=== PATIENT | male | born 1990 | race Caucasian/White ===

== ENCOUNTER 2022-07-29 09:00 | Inpatient (IN) | payer BC ==
[~2022-07-29] VITALS: Ht 177.8 cm; Wt 113.4 kg
[2022-07-29 09:07] VITALS: BP_SYST 166
[2022-07-29] MEDS ORDERED: NACL 0.9% 1,000 ML IV ONE ×2 (09:15→11:15)
[2022-07-29 09:32] LABS: BILIRUBIN,URINE 1+ (NEGATIVE); BLOOD, URINE 2+ (NEGATIVE); CLARITY/URINE CLEAR (CLEAR); COLOR,URINE YELLOW (YELLOW); GLUCOSE,URINE NEGATIVE (NEGATIVE); KETONES,URINE TRACE (NEGATIVE); LEUKOCYTE ESTERASE ,URINE NEGATIVE (NEGATIVE); NITRITE, URINE NEGATIVE (NEGATIVE); PH,URINE 5.5 (5.0-8.0); PROTEIN URINE 2+ (NEGATIVE); UROBILINOGEN,URINE 0.2 (0.2-1.0)
[2022-07-29 09:44] LABS: BACTERIA,URINE None Seen /HPF (None Seen); HYALINE CASTS, URINE 0-10 /LPF (None Seen); MUCUS,URINE 1+ /LPF (None Seen); WBC,URINE 0-3 /HPF (0-3)
[2022-07-29 09:57] LABS: BASOPHILS % (AUTO) 0.3 % (0.0-2.0); EOSINOPHILS % (AUTO) 0.3 % (0.0-4.0); HEMATOCRIT 43.6 % (36-54); HEMOGLOBIN 15.2 g/dL (14.0-18.0); LYMPHOCYTES # (AUTO) 1.7 K/uL (1.0-5.5); LYMPHOCYTES % (AUTO) 13.7 % (20.5-51.5); MEAN CORPUSCULAR HEMOGLOBIN 29 pg (27-31); MEAN CORPUSCULAR HGB CONC 35 % (32-36); MEAN CORPUSCULAR VOLUME 83 fL (79.0-98.0); MONOCYTES # (AUTO) 0.9 K/uL (0.0-1.0); MONOCYTES % (AUTO) 7.5 % (1.7-9.3); NEUTROPHILS # (AUTO) 9.5 K/uL (1.8-7.7); NEUTROPHILS % (AUTO) 78.2 % (40.0-70.0); PLATELET COUNT (AUTO) 250 K/uL (130-430); RED BLOOD CELL COUNT(AUTO) 5.26 MIL/uL (4.2-6.2); RED CELL DISTRIBUTION WIDTH 13.2 % (9.0-15.0); WHITE BLOOD COUNT (AUTO) 12.1 K/uL (4.8-10.8)
[2022-07-29 10:07] LABS: CALCIUM 9.2 mg/dL (8.4-11.0); CREATININE 1.61 mg/dL (0.55-1.30)
[2022-07-29 10:22] LABS: ALBUMIN 4.1 g/dL (3.4-4.8)
[2022-07-29] MEDS ORDERED: MORPHINE 4 MG INJ. 4 MG/ML VIAL IVP ONE (10:45)
[2022-07-29] MEDS ORDERED: ONDANSETRON HCL 4 MG/2 ML VIAL IVP ONE (10:45)
[2022-07-29] MEDS ORDERED: ONDANSETRON HCL 4 MG/2 ML VIAL IVP PRN (11:45)
[2022-07-29 13:00] VITALS: BP_SYST 150
[2022-07-29] MEDS ORDERED: MORPHINE 2 MG/ML INJ. SYRINGE IVP PRN (14:00)
[2022-07-29] MEDS ORDERED: NALOXONE HCL 0.4 MG/ML AMP (NARCAN) IVP PRN ×2 (14:00→17:00)
[2022-07-29] MEDS ORDERED: hydrALAZINE HCL 20 MG/ML VIAL IVP PRN (14:00)
[2022-07-29] MEDS ORDERED: D5/0.45 NS 1,000 ML IV SCH (14:15)
[2022-07-29] MEDS: MORPHINE 4 MG INJ. 4 MG/ML VIAL IVP PRN ×2 (14:30→21:50)
[2022-07-29] MEDS: D5/0.45 NS 1,000 ML IV SCH ×2 (14:35→22:15)
[2022-07-29] MEDS ORDERED: LORazepam 2 MG/ML VIAL IM PRN (17:00)
[2022-07-29] MEDS ORDERED: HYDROmorphone 1 MG/ML INJ. CARTRIDGE IM PRN (17:00)
[2022-07-29] MEDS: cefTRIAXone 1 GM in D5W 50 ML IV SCH (17:15)
[2022-07-29 20:00] VITALS: BP_SYST 124
[2022-07-29 20:15] VITALS: BP_SYST 146
[2022-07-30] VITALS (8 sets, daily range): BP systolic 118–161
[2022-07-30] MEDS: MORPHINE 4 MG INJ. 4 MG/ML VIAL IVP PRN ×4 (04:58→23:02)
[2022-07-30 06:46] LABS: BASOPHILS % (AUTO) 0.1 % (0.0-2.0); EOSINOPHILS % (AUTO) 0.1 % (0.0-4.0); HEMATOCRIT 47.2 % (36-54); HEMOGLOBIN 16.2 g/dL (14.0-18.0); LYMPHOCYTES # (AUTO) 0.9 K/uL (1.0-5.5); MEAN CORPUSCULAR HEMOGLOBIN 29 pg (27-31); MEAN CORPUSCULAR HGB CONC 34 % (32-36); MEAN CORPUSCULAR VOLUME 85 fL (79.0-98.0); MONOCYTES # (AUTO) 0.9 K/uL (0.0-1.0); MONOCYTES % (AUTO) 7.4 % (1.7-9.3); NEUTROPHILS # (AUTO) 10.8 K/uL (1.8-7.7); NEUTROPHILS % (AUTO) 85.4 % (40.0-70.0); PLATELET COUNT (AUTO) 237 K/uL (130-430); RED BLOOD CELL COUNT(AUTO) 5.58 MIL/uL (4.2-6.2); RED CELL DISTRIBUTION WIDTH 13.3 % (9.0-15.0); WHITE BLOOD COUNT (AUTO) 12.7 K/uL (4.8-10.8)
[2022-07-30 08:32] LABS: ALBUMIN 3.5 g/dL (3.4-4.8); CREATININE 1.22 mg/dL (0.55-1.30); PHOSPHORUS 3.5 mg/dL (2.7-4.5); TOTAL BILIRUBIN 0.7 mg/dL (0.0-1.0)
[2022-07-30] MEDS: D5/0.45 NS 1,000 ML IV SCH (08:44)
[2022-07-30] MEDS: LR 1,000 ML IV SCH ×3 (11:11→17:18)
[2022-07-30] MEDS: cefTRIAXone 1 GM in D5W 50 ML IV SCH (17:50)
[2022-07-31] MEDS: LR 1,000 ML IV SCH ×5 (00:38→17:34)
[2022-07-31 04:00] VITALS: BP_SYST 153
[2022-07-31] MEDS: MORPHINE 4 MG INJ. 4 MG/ML VIAL IVP PRN ×2 (05:34→10:12)
[2022-07-31 07:03] LABS: CALCIUM 7.9 mg/dL (8.4-11.0); CREATININE 1.01 mg/dL (0.55-1.30)
[2022-07-31 07:39] LABS: BASOPHILS # (AUTO) 0.1 K/uL (0.0-0.2); BASOPHILS % (AUTO) 0.4 % (0.0-2.0); EOSINOPHILS # (AUTO) 0.1 K/uL (0.0-0.4); EOSINOPHILS % (AUTO) 0.8 % (0.0-4.0); HEMATOCRIT 39.5 % (36-54); HEMOGLOBIN 13.9 g/dL (14.0-18.0); LYMPHOCYTES % (AUTO) 7.6 % (20.5-51.5); MEAN CORPUSCULAR HEMOGLOBIN 29 pg (27-31); MEAN CORPUSCULAR HGB CONC 35 % (32-36); MEAN CORPUSCULAR VOLUME 83 fL (79.0-98.0); MONOCYTES % (AUTO) 7.3 % (1.7-9.3); NEUTROPHILS # (AUTO) 11.1 K/uL (1.8-7.7); NEUTROPHILS % (AUTO) 83.9 % (40.0-70.0); PLATELET COUNT (AUTO) 177 K/uL (130-430); RED BLOOD CELL COUNT(AUTO) 4.73 MIL/uL (4.2-6.2); WHITE BLOOD COUNT (AUTO) 13.3 K/uL (4.8-10.8)
[2022-07-31 08:30] VITALS: BP_SYST 153
[2022-07-31] MEDS ORDERED: ACETAMINOPHEN 325 MG TABLET PO PRN (10:45)
[2022-07-31] MEDS ORDERED: HYDROcodone/ACETAMIN 5-325 MG TAB (NORCO/ VICODIN) PO PRN (10:45)
[2022-07-31] MEDS ORDERED: NALOXONE HCL 0.4 MG/ML AMP (NARCAN) IVP PRN (10:45)
[2022-07-31] MEDS ORDERED: HYDROCHLOROTHIAZIDE 25 MG TABLET (HCTZ) PO ONE (11:30)
[2022-07-31 12:00] VITALS: BP_SYST 144
[2022-07-31 16:18] VITALS: BP_SYST 162
[2022-07-31] MEDS: OXYCODONE/ACETAMINOPHEN 5-325 TABLET PO PRN (16:23)
[2022-07-31 20:00] VITALS: BP_SYST 150
[2022-08-01 02:00] VITALS: BP_SYST 152
[2022-08-01] MEDS: OXYCODONE/ACETAMINOPHEN 5-325 TABLET PO PRN ×2 (02:35→08:48)
[2022-08-01] MEDS: LR 1,000 ML IV SCH ×2 (02:35→06:10)
[2022-08-01 06:56] LABS: BASOPHILS % (AUTO) 0.4 % (0.0-2.0); EOSINOPHILS # (AUTO) 0.2 K/uL (0.0-0.4); EOSINOPHILS % (AUTO) 1.7 % (0.0-4.0); HEMATOCRIT 34.4 % (36-54); LYMPHOCYTES # (AUTO) 1.4 K/uL (1.0-5.5); LYMPHOCYTES % (AUTO) 12.1 % (20.5-51.5); MEAN CORPUSCULAR HEMOGLOBIN 29 pg (27-31); MEAN CORPUSCULAR HGB CONC 35 % (32-36); MEAN CORPUSCULAR VOLUME 84 fL (79.0-98.0); MONOCYTES % (AUTO) 8.8 % (1.7-9.3); NEUTROPHILS # (AUTO) 9.1 K/uL (1.8-7.7); PLATELET COUNT (AUTO) 163 K/uL (130-430); RED BLOOD CELL COUNT(AUTO) 4.11 MIL/uL (4.2-6.2); RED CELL DISTRIBUTION WIDTH 13.3 % (9.0-15.0); WHITE BLOOD COUNT (AUTO) 11.8 K/uL (4.8-10.8)
[2022-08-01 07:05] LABS: ALBUMIN 2.4 g/dL (3.4-4.8); CALCIUM 8.4 mg/dL (8.4-11.0); CREATININE 0.95 mg/dL (0.55-1.30); TOTAL BILIRUBIN 0.6 mg/dL (0.0-1.0)
[2022-08-01 08:09] VITALS: BP_SYST 160
[2022-08-01 08:13] VITALS: BP_SYST 148
[2022-08-01] MEDS ORDERED: HYDROCHLOROTHIAZIDE 25 MG TABLET (HCTZ) PO SCH (09:00)
[2022-08-01] MEDS ORDERED: HCT25 PO (10:08)
[2022-08-01] MEDS ORDERED: FOLI-43 PO (10:08)
[2022-08-01] MEDS ORDERED: MULT-1089 PO (10:08)
[2022-08-01] MEDS ORDERED: HYDR-3927 PO (10:08)
[2022-08-01] MEDS ORDERED: THIA100T70 PO (10:08)
[2022-08-01 10:50] VITALS: BP_SYST 124
[2022-08-01 11:27] VITALS: BP_SYST 135
[2022-08-01] MEDS ORDERED: NORMAL SALINE 5 ML DISP.SYRIN IVF SCH (14:00)
== END 2022-08-01 13:15 | disposition home or self-care (01) | DRG 438 ==
LOC: SED 09:00 → SMU 11:42
PROVIDERS: ADMIT Preventive Medicine Preventive Medicine/Occupational Environmental Medicine; ATTEND Preventive Medicine Preventive Medicine/Occupational Environmental Medicine
DX: K85.20 Alcohol induced acute pancreatitis without necrosis or infection (principal); E43 Unspecified severe protein-calorie malnutrition; E87.1 Hypo-osmolality and hyponatremia; D64.9 Anemia, unspecified; E88.09 Other disorders of plasma-protein metabolism, not elsewhere classified; E87.5 Hyperkalemia; E83.51 Hypocalcemia; E87.6 Hypokalemia; Z20.822 Contact with and (suspected) exposure to COVID-19; K82.8 Other specified diseases of gallbladder; F10.10 Alcohol abuse, uncomplicated; K81.9 Cholecystitis, unspecified; I10 Essential (primary) hypertension; Y90.9 Presence of alcohol in blood, level not specified; Z68.35 Body mass index [BMI] 35.0-35.9, adult
CPT/HCPCS: 36415; 76705; 78226; 80048; 80053; 81000; 82150; 83690; 83735; 84100; 85025; 87040; 87086; 93005; 96361; 96374; 96375; 99285; A9537; J0360; J0696; J1170; J2060; J2270; J2405; J7060; J7120